=== PATIENT | male | born 1955 | race Caucasian/White ===

== ENCOUNTER → 2018-10-20 | Outpatient (CLI) | payer OTHER | LOC: COL.RAD 10-19 11:30 | DX: Z01.818 Encounter for other preprocedural examination (principal); K76.9 Liver disease, unspecified; N28.9 Disorder of kidney and ureter, unspecified; R16.0 Hepatomegaly, not elsewhere classified; R93.89 Abnormal findings on diagnostic imaging of other specified body structures | CPT/HCPCS: Q9967 ==